=== PATIENT | female | born 1955 | race Caucasian/White ===

== ENCOUNTER 2024-03-23 09:45 | Outpatient (CLI) | payer MEDICARE, OTHER, SELFPAY ==
--- NOTE | ~2024-03-23 | MR_ITS ---
EXAMINATION: MR lumbar spine wo/w con DATE: 03/23/2024 11:26 INDICATION: Lumbar radiculopathy. Mid and lower back pain. Left leg pain. TECHNIQUE: Magnetic resonance imaging (MRI) of the lumbar spine was performed without and with 10 mL MultiHance intravenous contrast. COMPARISON: None FINDINGS: There is 9 mm anterolisthesis of L5 on S1. There are changes of posterior fusion procedure at L5-S1 with pedicle screws. There is severely decreased disc height at L5-S1. The distal spinal cor d signal intensity is normal. The conus medullaris is at L1. There is a 2.0 cm cyst in left kidney. T he following disc levels are specifically discussed: L1-L2: The disc is bulging. There is mild bilateral facet joint osteoarthritis. There is no neural fo raminal stenosis. There is mild central canal stenosis. L2-L3: The disc is bulging. There is mild bilateral facet joint osteoarthritis. There is mild bilater al neural foraminal stenosis. There is mild central canal stenosis. L3-L4: The disc is bulging. There is moderate bilateral facet joint osteoarthritis. There is mild tami ateral neural foraminal stenosis. There is mild central canal stenosis. L4-L5: The disc is bulging and has an annular fissure. There is moderate bilateral facet joint hypert rophy. There is mild bilateral neural foraminal stenosis. There is mild central canal stenosis. L5-S1: The disc does not extend beyond the endplate margin. There is no facet joint hypertrophy. Ther e is no neural foraminal stenosis. There is no central canal stenosis. IMPRESSION: 1. Mild lumbar spondylosis. 2. Posterior fusion procedure at L5-S1. Reviewed, dictated and finalized at location E.
--- NOTE | ~2024-03-23 | MR_ITS ---
EXAMINATION: MR thoracic spine wo con DATE: 03/23/2024 11:21 INDICATION: Age-related osteoporosis with current pathologic fracture. Mid to low back pain. TECHNIQUE: Magnetic resonance imaging (MRI) of the thoracic spine was performed without intravenous c ontrast. COMPARISON: None FINDINGS: Thoracic kyphosis is noted. There are chronic compression fractures of T3, T9, and T11. The re is mildly decreased disc height at T8-T9 and T9-T10. There is multilevel mild facet joint osteoart hritis. At T2-T3, there is a central extrusion with mild central canal stenosis. At T3-T4, there is a central protrusion with mild central canal stenosis. At T5-T6, there is a left central extrusion wit h mild central canal stenosis. At T7-T8, there is a central protrusion with mild central canal stenos is. At T8-T9, the disc is bulging with mild central canal stenosis. There is no neural foraminal sten osis. The spinal cord signal intensity is normal. The conus medullaris is at L1. IMPRESSION: 1. Mild thoracic spondylosis. Reviewed, dictated and finalized at location E.
== END 2024-03-23 09:46 ==
PROVIDERS: Visit Provider Pain Medicine Pain Medicine
DX: M80.08XA Age-related osteoporosis with current pathological fracture, vertebra(e), initial encounter for fracture (principal); M47.26 Other spondylosis with radiculopathy, lumbar region; Z98.1 Arthrodesis status
CPT/HCPCS: 72146; 72158; A9577